=== PATIENT | male | born 1955 | race Caucasian/White ===

== ENCOUNTER 2016-12-01 14:23 | Day surgery (SDC) | payer OTHER ==
[~2016-12-01] VITALS: Ht 170.2 cm; Wt 79.4 kg
[~2016-12-01 14:23] MED LIST: ALBU18HF INH; ALBU2.5V4 INHALATION; BUSP10TA2 PO; FLUO10TA PO; FLUO40CR TP; HYDR-3605 PO; IPRA0.2S51 IH; LEVO50TA6 PO; Lactated Ringer's 1,000 ML IV ONE; MORP15TA PO; RANI150C4 PO; RISP2TAB PO; SALM50DI IH; TEST100V4 IM
[2016-12-01 15:11] VITALS: BP 128/85; PULSE 83; RESP 17; O2SAT 77
== END 2016-12-01 23:59 | disposition home or self-care (01) ==
LOC: END 14:23
PROVIDERS: ATTEND Internal Medicine Gastroenterology
DX: R19.5 Other fecal abnormalities (principal); K21.9 Gastro-esophageal reflux disease without esophagitis; Z53.8 Procedure and treatment not carried out for other reasons